=== PATIENT | male | born 1965 | race Caucasian/White ===

== ENCOUNTER 2025-02-18 17:45 | Emergency (ER) | payer OTHER, SELFPAY ==
--- OUTSIDE RECORDS SUMMARY | 2025-02-18 17:47 | XMS_ITS | Clinical Summary ---
Author Organization [facility] Address [address] [place] [id number] Care Team Providers Care Production Operations Manager Name Role Phone Manuel Haines MD Primary Care Provider Allergies Active Allergy Reactions Criticality Noted Date Comments Feathers Other - Describe In Comment Field 04/27/2012 Chest tightness Medications MULTIVITAMIN TAB take 1 tablet by oral route once daily with food 0 9 Active clobetasol cream 0.05% (TEMOVATE) 0.05 % creamIndications:R kervin Apply topically to affected area(s) 2 times daily. 60 g 2 Active atorvastatin (LIPITOR) 10 mg tabletIndications: Hyperlipidemia, unspecified hyperlipidemia type Take 1 Tablet (10 mg) by mouth once daily. 90 Tablet 3 5 Active Active Problems Problem Noted Date Diagnosed Date Shingles 01/27/2019 Hip impingement syndrome 07/12/2010 Agatston coronary artery calcium score between 1 00 and 400 Overview (12/16/2024): CAC = 192.2; 86 percentile, done at [facility] 2023 Encounters Date Type Department Care Team Description 12/16/2024 8:25 AM CDT Office Visit [facility] [address] [place] [address] Manuel Haines MD Medication Management (Statin refills - blood work ) 12/16/2024 Travel from Last 3 Months Immunizations Immunization Administration Dates Next Due COVID-19 vaccine ([employer] 30mcg/0.3mL) MITRA Joyce 10/30/2020,10/09/2020 Td (Age >=7 Years) 03/26/2018,09/18/1995 Tdap 01/26/2007 Family History Medical History Relation Name Comments Hypertension Brother Cancer Father MDS/ CLL, at 73 Hypertension Mother Cancer-colon No Family History Cancer-prostate No Family History Diabetes No Family History Heart Disease No Family History Relation Name Status Comments Brother Father Mother Alive Social History Tobacco Use Types Packs/Day Years Used Date Smoking Tobacco: Never Smokeless Tobacco: Never Tobacco Cessation:Counseling Given: Yes Alcohol Use Standard Drinks/Week Comments Yes 6 (1 standard drink = 0.6 oz pur e alcohol) 5-6 drinks per week PHQ-2 Answer Date Recorded PHQ-2 TOTAL SCORE 0 12/16/2024 Social Connections Answer Date Recorded Do you often feel lonely or isolated from those around you? 0 12/16/2024 Financial Resource Strain Answer Date R ecorded Difficulty of Paying Living Expenses 3 12/16/2024 Difficulty of Paying Living Expenses Not on file 12/16/2024 Food Insecurity Answer Date Recorded Do you worry your food will run out before you are able to buy more? 1 12/16/2024 Transportation Needs Answer Date Record ed Does lack of transportation keep you from medica l appointments? 1 12/16/2024 Does lack of transportation keep you from work, meetings or getting things that you need? 1 12/16/2024 Housing Stability Answer Date Recorded What is your housing situation today? 1 12/16/2024 Utilities Answer Date Recorded Do you have trouble paying f or utilities (for example, heat, electricity, water, phone)? 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 on file Not on fi le Not on file Obstetrics History Last Filed Vital Signs Vital Sign Reading Time Taken Comments Blood Pressure 132/78 12/16/2024 8:36 AM CDT Pulse 59 12/16/2024 8:24 AM CDT Temperature 36.2 C (97.1 F) 11/18/2021 10:50 AM CDT Respiratory Rate 12 03/23/2014 12:38 PM CDT Oxygen Saturation 98% 12/16/2024 8:24 AM CDT Inhaled Oxygen Concentration - - Weight 90.4 kg (199 lb 3.7 oz) 12/16/2024 8:24 A M CDT Height 181.1 cm (5' 11.3) 03/29/2021 10:17 AM C DT Body Mass Index 27.55 03/29/2021 10:17 AM CDT Plan of Treatment Health Maintenance Due Date Last Done Comments HIV for age 15-65 1981 Hepatitis C screening for ag e 18-79 1984 Hepatitis B series for 19+ ( 1 of 3 - 19+ 3-dose series) 1985 Pneumococcal series for age 50+ (1 of 1 - PCV) 2016 Zoster (shingles) series for age 50+ (1 of 2) 2016 BMI (ht and wt on same day) for age 18+ 03/29/2022 03/29/2021, 03/28/2019, 02/08/2019, Additional history exists COVID-19 vaccine series (2024- season) 2025 10/30/2020, 10/09/2020 Influenza Vaccine (#1) 2025 Depression screening for age 12+ 12/16/2025 12/16/2024, 03/29/2021, 03/28/2019, Additional history exists Tetanus booster 03/26/2028 03/26/2018, 08/2006, 09/18/1995 Colonoscopy through age 75 10/11/2028 10/11/2018 Lipids for age 45-75 12/16/2029 12/16/2024, 03/29/2021, 03/28/2019, Additional history exists RSV vaccine for adults or (1 - 1-dose 75+ series) 2041 Procedures Procedure Name Priority Date/Time Associated Diagnosis Comments BASIC METABOLIC PANEL Routine 12/16/2024 8:56 AM CDT Hyperlipidemia, unspecified hyperlipidemia type PSA TOTAL Routine 12/16/2024 8:56 AM CDT Prostate cancer screening LIPID PANEL W REFLEX MEASURED LDL Routine 12/16/2024 8:56 AM CDT Hyperlipidemia, unspecified hyperlipidemia type SCAN-COLONOSCOPY 10/11/2018 12:0 0 AM CDT from Last 3 Months or Most Recently Relevant to Health Maintenance Results * LIPID PANEL W REFLEX MEASURED LDL (12/16/2024 8:56 AM CDT) CHOLESTEROL, TOTAL 149 <200 mg/dL [facility] HDL CHOLESTEROL 64 > OR = 40 mg/dL [facility] TRIGLYCERIDES 85 <150 mg/dL [facility] LDL-CHOLESTEROL 68 mg/dL (calc) [facility] Comment: Reference range: <100 Desirable range <100 mg/dL for primary prevention; <70 mg/dL for patients with CHD or diabetic patients with > or = 2 CHD risk factors. LDL-C is now calculated using the Ivet calculation, which is a validated novel method providing better accuracy than the Friedewald equation in the estimation of LDL-C. Vincenzo SS et al. LOBITO. 2013;310(19): 8199-7871 (http://education.BoardEvals/faq/DEI722) CHOL/HDLC RATIO 2.3 <5.0 (calc) [facility] NON HDL CHOLESTEROL 85 <130 mg/dL (calc) [facility] Comment: For patients with diabetes plus 1 major ASCVD risk factor, treating to a non-HDL-C goal of <100 mg/dL (LDL-C of <70 mg/dL) is considered a therapeutic option. Blood BLOOD SPECIMEN / Unknown 12/16/2024 8:56 AM CDT 12/16/2024 8:57 AM CDT us Manuel Haines MD CHEMISTRY Final Result [facility] [address] [place] [address], [place] [phone] [facility] [address] [place] [address] * PSA TOTAL (12/16/2024 8:56 AM CDT) Pathologist [facility] PSA, TOTAL 1.57 < OR = 4.00 ng/mL [facility] Comment: The total PSA value from this assay system is standardized against the WHO standard. The test result will be approximately 20% lower when compared to the equimolar-standardized total PSA (Joseph Janet). Comparison of serial PSA results should be interpreted with this fact in mind. This test was performed using the Siemens chemiluminescent method. Values obtained from different assay methods cannot be used interchangeably. PSA levels, regardless of value, should not be interpreted as absolute evidence of the presence or absence of disease. Blood BLOOD SPECIMEN / Unknown 12/16/2024 8:56 AM CDT 12/16/2024 8:57 AM CDT Manuel Haines MD CHEMISTRY Final Result [facility] [address] [place] [address], [facility] [address] [place] [id number] * BASIC METABOLIC PANEL (12/16/2024 8:56 AM CDT) Pathologist [facility] GLUCOSE 99 65 - 99 mg/dL [facility] Comment: Fasting reference interval UREA NITROGEN (BUN) 12 7 - 25 mg/dL [facility] CREATININE 1.16 0.70 - 1.30 mg/dL [facility] EGFR 73 > OR = 60 mL/min/1. 73m2 [facility] BUN/CREATININE RATIO SEE NOTE: 6 - 22 (calc) [facility] Comment: Not Reported: BUN and Creatinine are within reference range. SODIUM 139 135 - 146 mmol/L [facility] POTASSIUM 4.6 3.5 - 5.3 mmol/L [facility] CHLORIDE 102 98 - 110 mmol/L [facility] CARBON DIOXIDE 29 20 - 32 mmol/L [facility] ELECTROLYTE BALANCE 8 7 - 17 mmol/L (calc) [facility] CALCIUM 9.5 8.6 - 10.3 mg/dL [facility] Blood BLOOD SPECIMEN / Unknown 12/16/2024 8:56 AM CDT 12/16/2024 8:57 AM CDT us Manuel Haines MD CHEMISTRY Final Result [facility] [address] [place] [address], [place] [phone] [facility] [address] [place] [address] * SCAN-COLONOSCOPY (10/11/2018 12:00 AM CDT) us Scanner OTHER Final Result from Last 3 Months or Most Recently Relevant to Health Maintenance Insurance [facility] [employer] * Guarantor: [employer] Account Type Relation to Patient Date of Phone Billing Address [employer] Employer 1998 [address] [address] [place] [address] Care Teams Production Operations Manager Relationship Specialty Start Date End Date Manuel Haines MD [address] [place] [address] PCP - General 12/31/06
[2025-02-18 17:58] VITALS: BP 139/98; PULSE 79; RESP 16; TEMP 37; O2SAT 96; BMI 28.5
--- NOTE | 2025-02-18 18:09 | CRLHL7_ITS ---
For Patients: As a result of the Century Cures Act, medical imaging exams and procedure reports are released immediately into your electronic medical record. You may view this report before your referring provider. If you have questions, please contact your health care provider. INDICATION: Right-sided flank pain. TECHNIQUE: CT abdomen and pelvis without contrast. COMPARISON: None. FINDINGS: Lower chest: Unremarkable. Liver: Unremarkable. Gallbladder and bile ducts: Unremarkable. Pancreas: Unremarkable. Spleen: Unremarkable. Adrenal glands: Unremarkable. Kidneys: Right upper pole renal calculus measuring 6 mm. No hydronephrosis or hydroureter. No additional urinary calculi appreciated. GI tract: No bowel obstruction. No suspicious bowel wall thickening. Normal appendix. Vasculature: No abdominal aortic aneurysm. Lymph nodes: No suspicious lymphadenopathy. Peritoneum/Abdominal Wall: No ascites or pneumoperitoneum. No acute abdominal wall abnormality. Pelvis: Normal bladder. Unremarkable prostate and seminal vesicles. Bones: No acute abnormality. IMPRESSION: 1. Nonobstructing right upper pole renal calculus measuring 6 mm. No hydronephrosis or hydroureter. Please note that all CT scans at this facility use dose modulation, iterative reconstruction, and/or weight-based dosing when appropriate to reduce radiation dose to as low as reasonably achievable. Dictated by Enzo Preston MD @ 02/18/2025 7:13:54 PM (Electronically Signed)
--- NOTE | 2025-02-18 18:10 | ED.GENADULT ---
HPI - General Adult General Chief complaint: Flank Pain Stated complaint: Severe lower side back pain Time Seen by Provider: 02/18/25 17:49 History of Present Illness HPI narrative: This 59-year-old male comes in reporting right flank pain that began this afternoon prior to arrival. He states that the pain was very severe any had some associated nausea. He reports a history of a kidney stone 35 years ago and states that the pain seems somewhat similar to what happened back then. He states that his pain is much better now and rates that at 1/10 in severity a. He does not report any dysuria symptoms. He is otherwise in good health. Related Data Home Medications ?Medication ?Instructions ?Recorded ?Confirmed atorvastatin 10 mg tablet 10 mg PO DAILY 02/18/25 02/18/25 Allergies Allergy/AdvReac Type Severity Reaction Status Date / Time No Known Drug Allergies Allergy Verified 02/18/25 17:58 Review of Systems Status of ROS: Reports: 10 or more systems reviewed and unremarkable except as noted in History and below Narrative: Constitutional: No fevers, no weight gain or loss. Eyes: No discharge. No vision changes. HENT: No congestion, no sore throat, no ear pain. Cardiovascular: No chest pain, no palpitations. Respiratory: No shortness of breath, no wheezes, no cough. Gastrointestinal: No abdominal pain, no vomiting, no diarrhea. Right flank pain as described above. Genitourinary: No dysuria, no hematuria. Musculoskeletal: Normal range of motion. Skin: No rashes, no pruritis. Neurological: No dizziness, weakness, sensory change, speech change. Endo/Heme/Allergies: No bruising or bleeding. No polydipsia. Pysch: no suicidality, no anxiety, no insomnia. All other systems reviewed and are negative. [facility] Social History Smoking Status: Never smoker How often do you have a drink containing alcohol: 2-3 times a week AUDIT-C Alcohol total score: 3 Non-prescribed substance use: denies use Exam Narrative: Exam Narrative: Constitutional: Well-developed, well-nourished, no acute distress. HEENT: Normocephalic, atraumatic. Neck: Normal range of motion. Nontender. Supple. Heart: Regular. No murmurs. Normal rate. Intact distal pulses. Lungs: Clear to auscultation. No chest discomfort. No wheezes, rhonchi, or rales. Abdomen: Normal bowel sounds. Nontender. No rebound tenderness. Genitalia: Deferred. Back: No midline tenderness. Normal range of motion. Extremities: Normal range of motion. No injury. Skin: Intact. No rash. Warm. No erythema or pallor. Neurologic: No altered sensation. No weakness. Alert and oriented. Psychiatric: No suicidality. No anxiety or depression. No insomnia. Nursing notes and vitals signs are reviewed. Const: Vital Signs, click to edit/add: Vital Signs - 24 hr 02/18/25 17:58 Temperature 98.6 F Pulse Rate [Pulse Oximeter] 79 Respiratory Rate 16 [facility] 139[facility]98 H Pulse Oximetry 96 Oxygen Delivery Me thod Room Air Course Vital Signs Vital signs: Initial Vital Signs Temperature 98.6 F 02/18/25 17:58 Temperature Source Temporal Artery Scan 02/18/25 17:58 Pulse Rate 79 02/18/25 17:58 Respiratory Rate 16 02/18/25 17:58 Blood Pressure 139/98 H 02/18/25 17:58 Blood Pressure Mean 111 H 02/18/25 17:58 Blood Pressure Position Sitting 02/18/25 17:58 Pulse Oximetry 96 02/18/25 17:58 Oxygen Delivery Method Room Air 02/18/25 17:58 Vital Signs Temperature 98.6 F 02/18/25 17:58 Pulse Rate 79 02/18/25 17:58 Respiratory Rate 16 02/18/25 17:58 Blood Pressure 139/98 H 02/18/25 17:58 Pulse Oximetry 96 02/18/25 17:58 Oxygen Delivery Method Room Air 02/18/25 17:58 Temperature 98.6 F 02/18/25 17:58 Pulse Rate 79 02/18/25 17:58 Respiratory Rate 16 02/18/25 17:58 Blood Pressure 139/98 H 02/18/25 17:58 Pulse Oximetry 96 02/18/25 17:58 Oxygen Delivery Method Room Air 02/18/25 17:58 Medical Decision Making MDM Narrative Medical decision making narrative: This patient comes in with typical symptoms of a kidney stone with right flank pain and some nausea symptoms. He has a history of kidney stone in the very distant past. Upon arrival here E states that he is feeling much better and rates his pain at 1/10 in severity. Urinalysis does show microscopic hematuria but no sign of infection. CT scan is obtained and shows a 6 mm nonobstructive stone up in the right kidney but no ureteral stone. He is okay to be discharged home. I did provide [facility] prescriptions for Toradol, [place], and Zofran. Lab Data Labs: Lab Results 02/18/25 Range/Units 18:09 Urine Color Dark yellow (Yellow) Urine Appearance Clear (Clear) Urine pH 6.0 (5.0-8.5) Ur Specific [place] >= 1.030 (1.000-1.030) Urine Protein 1+ A (Negative) Urine Glucose (UA) Negative (Negative) Urine Ketones Trace A (Negative) Urine Blood 3+ A (Negative) Urine Nitrite Negative (Negative) Urine Bilirubin Negative (Negative) Urine Urobilinogen 0.2 (0.2-1.0) Ur Leukocyte Esterase Negative (Negative) Urine RBC 2-5 A (0-2) Urine WBC 0-2 (0-5) Ur Squamous Epith Cells None (None-Few) Calcium Oxalate Crystal Few A (None) Urine Bacteria Few A (None) Urine Mucus Few A (None) Imaging Data CT scan - abdomen: Radiologist's impression: Nonobstructing right upper pole renal calculus measuring 6 mm. No hydronephrosis or hydroureter. Discharge Plan Discharge Clinical Impression: Calculus, ureteral Patient Disposition: Home, Self-Care Condition: Improved Additional Instructions: Use medications as needed and directed. Follow up with MD return if symptoms are worsening. Prescriptions: No Action atorvastatin 10 mg tablet 10 mg PO DAILY Follow Up/Referrals: Albert Vu MD [Primary Care Provider, Hospitalist] Stand Alone Forms: [employer] Info Instructions
[2025-02-18 18:36] LABS: Appearance Urine Clear (Clear)
== END 2025-02-18 19:40 | disposition home or self-care (01) ==
PROVIDERS: Emergency Provider Emergency Medicine Emergency Medical Services; PCP Family Medicine
DX: N20.1 Calculus of ureter (principal)
CPT/HCPCS: 74176; 81001; 87086; 99284